=== PATIENT | female | born 1955 | race Caucasian/White ===

== ENCOUNTER 2023-08-02 16:01 | Inpatient (IN) ==
--- NOTE | 2023-08-02 16:15 | ED Triage Note ---
Date of Service August 02, 2023 History of Present Illness This patient was briefly evaluated while in triage. An abbreviated physical exam was performed. This patient is a 68-year-old Female who presents to the ED for evaluation of chest pain. She has a pacemaker and states that her bottom lead is loose. She has not felt right since getting her pacemaker placed in April 21, 2023. Has an appt on 08/20/23 to get it checked out. Has had the substernal chest pain and pressure since her pacemaker, but a lot worse today. Physical Exam GENERAL: Non-toxic and in no acute distress. HEENT: Pupils equal. No obvious scleral icterus. HEART: Regular rate and rhythm. LUNGS: Clear to auscultation. No accessory muscle use. ABDOMEN: Soft, nontender to palpation NEURO: Alert and oriented. No obvious neurological deficits on quick neuro exam. Initial orders for labs and / or imaging were placed and patient was placed in the waiting area until a bed is available. Please see further documentation for the full ED course. MDM / Impression Impression Impression: Atypical chest pain
--- NOTE | 2023-08-02 17:38 | XRay Report ---
XR chest 1V not portable HISTORY: 68 years-old Female Chest pain, nonspecific COMPARISON: None TECHNIQUE: PA view the chest FINDINGS: Cardiac silhouette is enlarged. No pneumothorax, pleural effusion or overt pulmonary edema. No lobar airspace consolidation. Mild linear subsegmental bibasilar atelectasis versus scarring. Bones appear grossly intact. IMPRESSION: Cardiomegaly without acute process. 112: Negative or not required by law. The above report was generated using voice recognition software. It may contain grammatical, syntax o r spelling errors. Electronically signed by: Freddie Moreira M.D. 08/02/2023 5:36 PM
[2023-08-02 20:27] LABS: Appearance Urine Cloudy (Clear); Bacteria Urine Automated 4+ (Negative); Bilirubin Urine Negative (Negative); Blood Urine Trace (Negative); Color Urine Yellow; Epithelial Cell Urine Auto >30 /lpf (0-5); Glucose Urine UA Negative (Negative); Ketones Urine Negative (Negative); Leukocyte Esterase Urine 3+ (Negative); Nitrite Urine Positive (Negative); Protein Urine Negative (Negative); RBC Urine Automated 0-4 /hpf (0-4); Specific Gravity Urine 1.021 (1.000-1.030); Urobilinogen Urine Negative (Negative); WBC Urine Automated >30 /hpf (0-5)
[2023-08-02 20:28] LABS: Basophils # (auto) 0.05 K/uL (0.00-0.20); Basophils % (auto) 0.7 %; Eosinophils % (auto) 2.9 %; Hematocrit (blood only) 40.7 % (37.0-47.0); Hemoglobin 13.8 g/dl (12.0-16.0); Immature Granulocytes # (auto) 0.02 K/uL (0.01-0.20); Immature Granulocytes % (auto) 0.3 %; Lymphocytes # (auto) 2.73 K/uL (1.20-3.40); Lymphocytes % (auto) 39.2 %; Mean Corpuscular Hemoglobin 31.7 pg (25.0-34.0); Mean Corpuscular Hgb Conc 33.9 g/dL (32.0-36.0); Mean Corpuscular Volume 93.3 fL (80.0-100.0); Monocytes # (auto) 0.46 K/uL (0.11-0.59); Monocytes % (auto) 6.6 %; Neutrophils % (auto) 50.3 %; Platelet Count 269 K/uL (130-400); RDW Coefficient of Variation 13.2 % (11.5-14.5); RDW Standard Deviation 45.6 fL (36.4-46.3); Red Blood Count 4.36 M/uL (4.20-5.40); White Blood Count 6.96 K/ul (4.8-10.8)
[2023-08-02 20:42] LABS: Albumin Globulin Ratio 1.3 (0.9-2); Albumin Level 4.1 gm/dl (3.4-5.0); Bilirubin,Total 0.2 mg/dl (0.2-1.0); Calcium 9.5 mg/dl (8.6-10.3); Creatinine Clr Calc Pharmacy 71.1 ml/min; Est GFR (African American) 71.4 ml/min; Est GFR (Non-African American) 61.6 ml/min; Globulin 3.1 gm/dl (2.5-4.0); Potassium 4.2 mmol/L (3.5-5.1); Total Protein 7.2 gm/dl (6.0-8.3)
[2023-08-02 20:49] LABS: Troponin I High Sensitivity 3.7 pg/ml (0-14)
[2023-08-02 21:00] LABS: Partial Thromboplastin Ratio 0.8; Partial Thromboplastin Time 23.2 Seconds (21.0-31.0); Prothrombin Time 10.7 Seconds (9.0-12.0)
--- NOTE | 2023-08-02 21:49 | Emergency Department Note ---
Impression & Plan Atypical chest pain DC ED Provider Note HPI: The patient is a 68-year-old female with history of bradycardia, status post pacemaker with original placement in March 2023, requiring revision in May 2023 through the [facility] over concern for a nonfunctioning lead, presents emergency department today with a chief complaint of chest pain. Patient states she has been having some intermittent discomfort in the left part of her chest since late May or early June. On arrival here to the ED, patient is stating that she has some pressure substernally, she states she has mild shortness of breath but she is resting comfortably in bed and saturating well on room air on my initial assessment. ROS: - Per HPI Differential Diagnosis: Acute coronary syndrome, pneumothorax, aortic dissection, pulmonary edema, pneumonia, CHF exacerbation, amongst other p otential pathologies. *Outpatient medications and allergy history reviewed. *Pertinent external medical records reviewed. PE: General: Alert HEENT: Normocephalic, trachea midline Eyes: Extraocular eye movement is intact, no scleral erythema Pulmonary: Clear to auscultation bilaterally, no wheezing Cardio: Regular rate and rhythm GI: Abdomen is soft to palpation : No suprapubic tenderness MSK: No evidence of trauma or malformation of the extremities, no edema Skin: No evidence of rash Neuro: Alert, no focal deficits Psychiatric: Cooperative playground monitor: (As interpreted by myself): - An order was placed for continuous cardiac monitoring - Patient was noted to be in paced rhythm with a rate of 60 EKG: (As interpreted by myself): Rate: 65 Rhythm: Atrial paced rhythm Intervals: ND interval 254 ms, QRS 152 ms, QTc [address] changes: No ST elevation Time: 2 0: 01 Interventions provided in ED: -Aspirin, sublingual nitroglycerin Medical Decision Making: Patient presented to the emergency department with symptoms of nonspecific chest discomfort. She states is been ongoing for several months. Patient also mention concern about pacemaker malfunctioning, states that she has an upcoming appointment with electrophysiology through [facility] cardiology for evaluation of lead revision. EKG per my interpretation shows evidence of a paced rhythm, lab work shows no leukocytosis, hemoglobin is stable, platelet count is normal, CMP does not show any critical findings, troponin is negative, delta troponin was obtained and is also negative. Chest x-ray shows cardiomegaly without any other acute process per radiology. Patient's pacemaker was interrogated, I did discuss the findings with the on-call client support representative from [email or web address], she states that the patient has not had any evidence of pacemaker malfunction or failure upon review of interrogation report. Patient's urinalysis is contaminated but possibly consistent with infection, will send for culture. Patient denies any recent urinary symptoms, denies any dysuria or fevers or flank pain. Will defer treatment. On my reassessment patient states that she has beginning of some chest discomfort again, she was given sublingual nitroglycerin with some improvement. Patient states she would prefer admission as opposed to discharge at this time as she is still having some chest discomfort. Patient is saturating well on room air, she is not tachycardic, low suspicion for PE. I did discuss the patient's presentation with the on-call hospitalist, Dr. Soto, and patient was excepted for inpatient management. Consultants: Hospitalist, Dr. Soto Disposition discussion held by myself with: Patient Diagnosis: 1. Chest pain, acute, nonspecific 2. Encounter for pacemaker interrogation Disposition: Admission Bayron Mae DO Emergency Medicine Past Med/Surg History Social History Smoking Status: Never smoker Preferred Language: Kinyarwanda Feels Safe at Home: Yes Allergies Allergies Allergy/AdvReac Type Severity Reaction Status Date / Time iv dye Allergy Uncoded 07/23/23 10:11 Home Meds Home Medications Medication Instructions Recorded Confirmed aspirin 81 mg tablet,delayed 81 mg PO DAILY 07/23/23 08/02/23 release calcium carbonate 600 mg-vitamin 1 tab PO DAILY 07/23/23 08/02/23 D3 20 mcg (800 unit) chewable tablet (Caltrate 600 plus D) conjugated estrogens 0.625 mg/gram 0.625 mg vaginal .COMPLEX 07/23/23 08/02/23 vaginal cream (Premarin) fluticasone propionate 50 1 spray intranasal DAILY 07/23/23 08/02/23 mcg/actuation nasal spray,suspension levothyroxine 100 mcg tablet 100 mcg PO .DAILY DIRECTED 07/23/23 08/02/23 losartan 100 mg tablet 100 mg PO DAILY 07/23/23 08/02/23 mecobalamin (vitamin B12) 500 mcg 500 mcg PO DAILY 07/23/23 08/02/23 chewable tablet omeprazole 20 mg capsule,delayed 20 mg PO DAILY 07/23/23 08/02/23 release simvastatin 20 mg tablet 20 mg PO DAILY 07/23/23 08/02/23 triamcinolone acetonide 0.1 % 1 applic topical .COMPLEX PRN as 07/23/23 08/02/23 topical cream directed armodafinil 250 mg tablet 250 mg PO DAILY 08/02/23 08/02/23 cholecalciferol (vitamin D3) 125 125 mcg PO DAILY 08/02/23 08/02/23 mcg (5,000 unit) tablet (Vitamin D3) solifenacin 10 mg tablet 10 mg PO DAILY 08/02/23 08/02/23 Results & Data (ED) Vital Signs Vital Signs - 24 hr 08/02/23 16:12 08/02/23 21:05 08/02/23 21:53 Temperature 37.0 C Temperature Source Temporal Artery Scan Pulse Rate 73 63 Pulse Rate [Right Finger] 61 Pulse Rate from SpO2 Sensor Pulse Rhythm Regular Pulse Rhythm [Right Finger] Regular Pulse Strength Normal Pulse Strength [Right Finger] Normal Respiratory Rate 20 18 Respiratory Effort / Characteristics Non-Labored Spontaneous Non-Labored Spontaneous Respiratory Depth Normal Normal Respiratory Pattern Regular Regular Blood Pressure 167/87 H Blood Pressure [Right Arm] 174/97 H Blood Pressure Mean 113 Blood Pressure Mean [Right Arm] 122 Blood Pressure Position Sitting Blood Pressure Position [Right Arm] Lying Pulse Oximetry 96 96 Oxygen Delivery Method Room Air Room Air Sepsis Recent Fever Within 48 Hours No Sepsis New/Unexplained Change in Mental Status No Sepsis Action Taken by Nursing No Action Required 08/02/23 22:07 08/02/23 23:44 08/02/23 23:43 Temperature Temperature Source Pulse Rate 71 60 Pulse Rate [Right Finger] 62 Pulse Rate from SpO2 Sensor 60 Pulse Rhythm Pulse Rhythm [Right Finger] Pulse Strength Pulse Strength [Right Finger] Respiratory Rate 20 16 15 Respiratory Effort / Characteristics Non-Labored Respiratory Depth Normal Respiratory Pattern Blood Pressure 150/79 H 157/89 H Blood Pressure [Right Arm] 157/89 H Blood Pressure Mean 102 111 Blood Pressure Mean [Right Arm] 111 Blood Pressure Position Blood Pressure Position [Right Arm] Pulse Oximetry 96 96 96 Oxygen Delivery Method Room Air Room Air Room Air Sepsis Recent Fever Within 48 Hours Sepsis New/Unexplained Change in Mental Status Sepsis Action Taken by Nursing 08/03/23 00:00 Temperature Temperature Source Pulse Rate 62 Pulse Rate [Right Finger] Pulse Rate from SpO2 Sensor 60 Pulse Rhythm Pulse Rhythm [Right Finger] Pulse Strength Pulse Strength [Right Finger] Respiratory Rate 12 Respiratory Effort / Characteristics Respiratory Depth Respiratory Pattern Blood Pressure 144/81 H Blood Pressure [Right Arm] Blood Pressure Mean 102 Blood Pressure Mean [Right Arm] Blood Pressure Position Blood Pressure Position [Right Arm] Pulse Oximetry 91 Oxygen Delivery Method Room Air Sepsis Recent Fever Within 48 Hours Sepsis New/Unexplained Change in Mental Status Sepsis Action Taken by Nursing Laboratory Data 08/02/23 20:00 08/02/23 20:00 Lab Results 08/02/23 08/02/23 08/02/23 Range/Units 20:00 20:00 20:00 WBC 6.96 (4.8-10.8) K/ul RBC 4.36 (4.20-5.40) M/uL Hgb 13.8 (12.0-16.0) g/dl Hct 40.7 (37.0-47.0) % MCV 93.3 (80.0-100.0) fL MCH 31.7 (25.0-34.0) pg MCHC 33.9 (32.0-36.0) g/dL RDW Std Deviation 45.6 (36.4-46.3) fL RDW Coeff of Julien 13.2 (11.5-14.5) % Plt Count 269 (130-400) K/uL MPV 9.0 L (9.4-12.4) fL Immature Gran % (Auto) 0.3 % Neut % (Auto) 50.3 % Lymph % (Auto) 39.2 % Angelina % (Auto) 6.6 % Eos % (Auto) 2.9 % Baso % (Auto) 0.7 % Neut # (Auto) 3.50 (1.40-6.50) K/uL Lymph # (Auto) 2.73 (1.20-3.40) K/uL Angelina # (Auto) 0.46 (0.11-0.59) K/uL Eos # (Auto) 0.20 (0.00-0.50) K/uL Baso # (Auto) 0.05 (0.00-0.20) K/uL Immature Gran # (Auto) 0.02 (0.01-0.20) K/uL PT 10.7 (9.0-12.0) Seconds INR 1.0 (0.9-1.1) APTT 23.2 (21.0-31.0) Seconds PTT Ratio 0.8 Sodium 139 (136-145) mmol/L Potassium 4.2 (3.5-5.1) mmol/L Chloride 108 H (98-107) mmol/L Carbon Dioxide 25 (21-32) mmol/L Anion Gap 6 (3-11) BUN 23 (6-23) mg/dl Creatinine 0.96 (0.6-1.2) mg/dl Est Cr Clr Drug Dosing 71.1 ml/min Est GFR ( Amer) 71.4 ml/min Est GFR (Non-Af Amer) 61.6 ml/min BUN/Creatinine Ratio 24.0 H (10-20) Glucose 88 (70-99(Fasting)) mg/dl Calcium 9.5 (8.6-10.3) mg/dl Total Bilirubin 0.2 (0.2-1.0) mg/dl AST 16 (13-39) U/L ALT 21 (7-52) U/L Alkaline Phosphatase 94 (34-104) U/L Troponin I High Sens 3.7 (0-14) pg/ml Total Protein 7.2 (6.0-8.3) gm/dl Albumin 4.1 (3.4-5.0) gm/dl Globulin 3.1 (2.5-4.0) gm/dl Albumin/Globulin Ratio 1.3 (0.9-2) Lipase 15 (11-82) U/L Urine Color Urine Appearance (Clear) Urine pH (4.5-7.5) Ur Specific [place] (1.000-1.030) Urine Protein (Negative) Urine Glucose (UA) (Negative) Urine Ketones (Negative) Urine Blood (Negative) Urine Nitrite (Negative) Urine Bilirubin (Negative) Urine Urobilinogen (Negative) Ur Leukocyte Esterase (Negative) Urine WBC (Auto) (0-5) /hpf Urine RBC (Auto) (0-4) /hpf U Hyaline Cast (Auto) (0-5) /lpf U Epithel Cells (Auto) (0-5) /lpf Urine Bacteria (Auto) (Negative) SARS-CoV-2, RNA, NAAT (NEGATIVE) 08/02/23 08/02/23 08/02/23 Range/Units 20:00 20:10 21:53 WBC (4.8-10.8) K/ul RBC (4.20-5.40) M/uL Hgb (12.0-16.0) g/dl Hct (37.0-47.0) % MCV (80.0-100.0) fL MCH (25.0-34.0) pg MCHC (32.0-36.0) g/dL RDW Std Deviation (36.4-46.3) fL RDW Coeff of Julien (11.5-14.5) % Plt Count (130-400) K/uL MPV (9.4-12.4) fL Immature Gran % (Auto) % Neut % (Auto) % Lymph % (Auto) % Angelina % (Auto) % Eos % (Auto) % Baso % (Auto) % Neut # (Auto) (1.40-6.50) K/uL Lymph # (Auto) (1.20-3.40) K/uL Angelina # (Auto) (0.11-0.59) K/uL Eos # (Auto) (0.00-0.50) K/uL Baso # (Auto) (0.00-0.20) K/uL Immature Gran # (Auto) (0.01-0.20) K/uL PT (9.0-12.0) Seconds INR (0.9-1.1) APTT (21.0-31.0) Seconds PTT Ratio Sodium (136-145) mmol/L Potassium (3.5-5.1) mmol/L Chloride (98-107) mmol/L Carbon Dioxide (21-32) mmol/L Anion Gap (3-11) BUN (6-23) mg/dl Creatinine (0.6-1.2) mg/dl Est Cr Clr Drug Dosing ml/min Est GFR ( Amer) ml/min Est GFR (Non-Af Amer) ml/min BUN/Creatinine Ratio (10-20) Glucose (70-99(Fasting)) mg/dl Calcium (8.6-10.3) mg/dl Total Bilirubin (0.2-1.0) mg/dl AST (13-39) U/L ALT (7-52) U/L Alkaline Phosphatase (34-104) U/L Troponin I High Sens 3.9 (0-14) pg/ml Total Protein (6.0-8.3) gm/dl Albumin (3.4-5.0) gm/dl Globulin (2.5-4.0) gm/dl Albumin/Globulin Ratio (0.9-2) Lipase (11-82) U/L Urine Color Yellow Urine Appearance Cloudy A (Clear) Urine pH 7.0 (4.5-7.5) Ur Specific [place] 1.021 (1.000-1.030) Urine Protein Negative (Negative) Urine Glucose (UA) Negative (Negative) Urine Ketones Negative (Negative) Urine Blood Trace H (Negative) Urine Nitrite Positive A (Negative) Urine Bilirubin Negative (Negative) Urine Urobilinogen Negative (Negative) Ur Leukocyte Esterase 3+ H (Negative) Urine WBC (Auto) >30 H (0-5) /hpf Urine RBC (Auto) 0-4 (0-4) /hpf U Hyaline Cast (Auto) 1-5 (0-5) /lpf U Epithel Cells (Auto) >30 H (0-5) /lpf Urine Bacteria (Auto) 4+ H (Negative) SARS-CoV-2, RNA, NAAT NEGATIVE (NEGATIVE) Administered Medications Discontinued Medications Aspirin (Aspirin Chew 324 Mg) 324 mg PO NOW STA Stop: 08/02/23 23:13 Last Admin: 08/02/23 23:43 Dose: 324 mg Documented By: CHARMAINE Nitroglycerin (Nitroglycerin Sl 0.4 Mg/Tab Tab) 0.4 mg SL NOW STA Stop: 08/02/23 23:23 Last Admin: 08/02/23 23:43 Dose: 0.4 mg Documented By: Admin: 08/02/23 23:43 Dose: 0.4 mg Documented By: CHARMAINE Imaging Data Radiologist's Impression: Chest X-Ray 08/02/23 16:15 XR chest 1V not portable HISTORY: 68 years-old Female Chest pain, nonspecific COMPARISON: None TECHNIQUE: PA view the chest FINDINGS: Cardiac silhouette is enlarged. No pneumothorax, pleural effusion or overt pulm onary edema. No lobar airspace consolidation. Mild linear subsegmental bibasilar atelectasis versus scarring. Bones appear grossly intact. IMPRESSION: Cardiomegaly without acute process. 112: Negative or not required by law. The above report was generated using voice recognition software. It may contain grammatical, syntax or spelling errors. Electronically signed by: Freddie Moreira M.D. 08/02/2023 5:36 PM Discharge Plan Visit Data Chief Complaint: Chest Pain Stated Complaint: CHEST DISCOMFORT,PACEMAKER ISSUES ED Provider: Bayron Mae Discharge Problem: Atypical chest pain Patient Disposition: Home - Self-Care Condition: Good Discharge Instructions Krames/Other Patient Handouts: ED [facility] Chest Pain Activity Restrictions/Additional Instructions: Please follow-up with your primary care doctor in 2 to 3 days for reevaluation. Please return the emergency room if you have any new or acutely worsening symptoms. Please follow-up with electrophysiology, as scheduled. Forms Stand Alone Forms: My [facility], Virtual Emergency Department, Important Visit Information Prescriptions Prescriptions: No Action Caltrate 600 plus D 600 mg-20 mcg (800 unit) tablet,chewable 1 tab PO DAILY fluticasone propionate 50 mcg/actuation spray,suspension 1 spray intranasal DAILY Rx Instructions: administer into each nostril levothyroxine 100 mcg tablet 100 mcg PO .DAILY DIRECTED Rx Instructions: take 1 tablet 6 days a week and take 1/2 tablet 1 day per week Premarin 0.625 mg/gram cream 0.625 mg vaginal .COMPLEX Rx Instructions: 0.625 mg vaginally twice a week omeprazole 20 mg capsule,delayed release(DR/EC) 20 mg PO DAILY simvastatin 20 mg tablet 20 mg PO DAILY mecobalamin (vitamin B12) 500 mcg tablet,chewable 500 mcg PO DAILY triamcinolone acetonide 0.1 % cream 1 applic topical .COMPLEX PRN (Reason: as directed) Rx Instructions: 1 applic topically twice a week; aspirin 81 mg tablet,delayed release (DR/EC) 81 mg PO DAILY losartan 100 mg tablet 100 mg PO DAILY solifenacin 10 mg tablet 10 mg PO DAILY armodafinil 250 mg tablet 250 mg PO DAILY cholecalciferol (vitamin D3) [Vitamin D3] 125 mcg (5,000 unit) Tablet 125 mcg PO DAILY Referrals Referrals: Sergey Ryan MD [Physician] - Dora Parrish M.D. [Primary Care Provider] -
[2023-08-02] MEDS ORDERED: ASPIRIN CHEW 324 MG PO STA (23:12)
[2023-08-02] MEDS: NITROGLYCERIN SL 0.4 MG/TAB TAB SL STA (23:43)
--- NOTE | 2023-08-03 00:41 | History & Physical Report ---
Date of Service August 02, 2023 Assessment & Plan (1) Atypical chest pain: Plan: -Pt presents with progressive chest pressure with few months' duration -Hemodynamically stable at present -EKG w/o acute ST changes, negative troponin x2, pt denies explicit pain -Suspect symptoms may be secondary to evolving coronary disease vs pacemaker complication -TTE ordered -Telemetry monitoring -Cardiology consult placed for AM (2) Pacemaker: Plan: -As above -Currently in paced rhythm (3) Hypertension: Plan: -BP stable -Continue losartan (4) Hyperlipidemia: Plan: -Continue simvastatin (5) GERD (gastroesophageal reflux disease): Plan: -Continue omeprazole (6) Hypothyroidism: Plan: -Continue levothyroxine (7) Sleep-wake disorder: Plan: -Continue armodafinil (8) Overactive bladder: Plan: -Continue solinefacin (9) Obstructive sleep apnea: Plan: -Continue BIPAP Hs (10) Abnormal urinalysis: Plan: -Infected urinalysis on admission though likely contaminant given pt has no urinary symptoms -UCx pending -Deferring antibiotics for now Plan FENGI: NPO in case of procedure in AM Code status: Conditional, DNI DVT prophylaxis: SCDs Isolation: None Disposition: Medical/surgical with telemetry History of Present Illness Chief Complaint: Chest pressure Primary Care Provider: Dora Parrish Pt is 68 yo F with PMH BONNY on BIPAP, hypothyroidism, overactive bladder, sleep- cycle disorder, HTN, GERD, HLD, bradycardia w/ syncope s/p pacemaker insertion 03/2023 presenting with chest pressure. Pt states she had pacemaker insertion on 04/20/23 due to history of persistent bradycardia. She felt well afterward until 6 weeks post-procedure when she began to have intermittent and self-limiting midsternal 5/10 chest pressure (denies pain) without radiation or associated symptoms. She did have pacemaker revision in 05/2023 due do dislodged lead. She notes since 2-3 weeks prior, the chest pressure has evolved to be mostly constant and higher in severity to 7/10. She does note over the past year some increased chest pressure and dyspnea on exertion of which her current symptoms are reminiscent. Denies any FMH of ACS but does report "heart disease" in several family members. She last had stress testing 4 years prior but cannot recall results and has never had catheterization. Pt arrived to ER hemodynamically stable, BP 150s-170s/80s-90s, received aspirin 324 mg and nitroglycerin SL x2. Initial evaluation significant for EKG w/ atrial paced rhythm and prolonged AV conduction, RBBB, no overt ST segment elevations/depressions. CBC, CMP, CXR, troponin x2 negative. UA suggesting infection though epithelial cells noted. At present, pt reports no change in chest pressure. No new symptoms. Allergies Allergy/AdvReac Type Severity Reaction Status Date / Time Iodinated Contrast Media Allergy Unknown Verified 08/03/23 03:17 Home Medications Medication Instructions Recorded Confirmed Type aspirin 81 mg tablet,delayed 81 mg PO DAILY 07/23/23 08/02/23 History release calcium carbonate 600 mg-vitamin 1 tab PO DAILY 07/23/23 08/02/23 History D3 20 mcg (800 unit) chewable tablet (Caltrate 600 plus D) conjugated estrogens 0.625 mg/gram 0.625 mg vaginal .COMPLEX 07/23/23 08/02/23 History vaginal cream (Premarin) fluticasone propionate 50 1 spray intranasal DAILY 07/23/23 08/02/23 History mcg/actuation nasal spray,suspension levothyroxine 100 mcg tablet 100 mcg PO .DAILY DIRECTED 07/23/23 08/02/23 History losartan 100 mg tablet 100 mg PO DAILY 07/23/23 08/02/23 History mecobalamin (vitamin B12) 500 mcg 500 mcg PO DAILY 07/23/23 08/02/23 History chewable tablet omeprazole 20 mg capsule,delayed 20 mg PO DAILY 07/23/23 08/02/23 History release simvastatin 20 mg tablet 20 mg PO DAILY 07/23/23 08/02/23 History triamcinolone acetonide 0.1 % 1 applic topical .COMPLEX PRN as 07/23/23 08/02/23 History topical cream directed armodafinil 250 mg tablet 250 mg PO DAILY 08/02/23 08/02/23 History cholecalciferol (vitamin D3) 125 125 mcg PO DAILY 08/02/23 08/02/23 History mcg (5,000 unit) tablet (Vitamin D3) solifenacin 10 mg tablet 10 mg PO DAILY 08/02/23 08/02/23 History Past Med/Surg History Social History Smoking Status: Never smoker Second Hand Exposure: No; Do You Dip or Chew Tobacco: No; Tobacco Cessation Education Requested by Patient: No Hx Alcohol Use: No Hx Substance Use: No Preferred Language: Cambodian Communication Ability: Effective Returned Item Clerk Required: No Beliefs That Will Affect Care: None Current Living Situation: Spouse Feels Safe at Home: Yes Safety Concerns: Feels Safe At This Time Assistive Devices: BiPap Review of Systems Review of Systems: Per HPI Physical Exam Physical Exam: General: well-appearing, no acute distress HEENT: PERRL, EOMI, conjunctivae clear without injection, anicteric sclerae, moist mucous membranes, clear oropharynx without exudate or erythema Neck: supple, trachea midline, no thyromegaly, no JVD, no cervical lymphadenopathy CV: RRR, normal S1 and S2, no murmurs Resp: CTAB, no increased work of breathing, no crackles or wheezes Abd: Soft, nontender, nondistended, no guarding or rebound, no hepatosplenomegaly MSK: Normal bulk of all four extremities Neuro: AOx3, no focal motor or sensory deficits Skin: no rashes or lesions, warm and dry Ext: no LE peripheral edema or erythema, capillary refill <2s in all four extremities, 2+ LE peripheral pulses b/l Results & Data Results & Data Vital Signs (Past 12 Hours) Vital Signs Temp Pulse Pulse Resp BP BP Pulse Ox 08/02/23 23:44 62 16 157/89 H 96 08/02/23 22:07 71 20 150/79 H 96 08/02/23 21:53 63 08/02/23 21:05 61 18 174/97 H 96 08/02/23 16:12 37.0 C 73 20 167/87 H 96 O2 Del Method 08/02/23 23:44 Room Air 08/02/23 22:07 Room Air 08/02/23 21:53 08/02/23 21:05 Room Air 08/02/23 16:12 Room Air Supervising Physician Co-Signing Physician Notes Attending addendum: I have physically seen this patient, have supervised the medical residents activities, and agree with the H&P unless as otherwise noted. Assessment and Plan: Chest pain/hypertension/pacemaker presents- The patient will be admitted to telemetry for serial cardiac enzymes, serial EKG's, cardiac rhythm monitoring and a 2-D echocardiogram with Dopplers. Initial EKG and troponins negative Continue losartan Aspirin 81 mg daily. Full loading dose in ED Consult to cardiology Hyperlipidemia- Continue simvastatin Check a fasting lipid panel Sleep-wake disorder- On armodafinil We will need to reassess in the presence of chest pain BONNY- Continue his home BiPAP at at bedtime Remaining orders and notations as noted Resident Activity Tracking Resident Involvement: Resident Care Provided Care Provided: Adult Hospital Medicine
[2023-08-03] MEDS ORDERED: ONDANSETRON INJ 2 MG/ML 2 ML VIAL IV PRN (03:00)
[2023-08-03] MEDS ORDERED: MoRPHine SULFATE 2 MG/ML CARP IV PRN (03:00)
[2023-08-03 04:26] LABS: BUN Creatinine Ratio 25.6 (10-20); Calcium 8.6 mg/dl (8.6-10.3); Creatinine Clr Calc Pharmacy 87.5 ml/min; Est GFR (African American) 91.8 ml/min; Est GFR (Non-African American) 79.2 ml/min
[2023-08-03 04:27] LABS: Hematocrit (blood only) 37.3 % (37.0-47.0); Hemoglobin 12.9 g/dl (12.0-16.0); Mean Corpuscular Hemoglobin 31.7 pg (25.0-34.0); Mean Corpuscular Hgb Conc 34.6 g/dL (32.0-36.0); Mean Corpuscular Volume 91.6 fL (80.0-100.0); Mean Platelet Volume 8.8 fL (9.4-12.4); Platelet Count 256 K/uL (130-400); RDW Coefficient of Variation 13.1 % (11.5-14.5); RDW Standard Deviation 43.9 fL (36.4-46.3); Red Blood Count 4.07 M/uL (4.20-5.40); White Blood Count 5.43 K/ul (4.8-10.8)
[2023-08-03] MEDS: NITROGLYCERIN 2% OINTMENT 30GM TUBE EXT SCH ×2 (06:25→14:40)
[2023-08-03] MEDS ORDERED: LEVOTHYROXINE SODIUM 100 MCG TABLET PO SCH (06:30)
[2023-08-03] MEDS: PANTOprazole 40 MG TAB PO SCH (09:27)
[2023-08-03] MEDS: ASPIRIN 81 MG ECTAB PO SCH (09:27)
[2023-08-03] MEDS: SIMVASTATIN 20 MG TAB PO SCH (09:27)
[2023-08-03] MEDS: OXYBUTYNIN CHLORIDE XL 5 MG TABCR PO SCH (09:27)
[2023-08-03] MEDS: LOSARTAN POTASSIUM 50 MG TAB PO SCH (09:27)
[2023-08-03 10:52] LABS: C Reactive Protein 0.55 mg/dl (0-0.5)
--- NOTE | 2023-08-03 12:21 | XCELERA ---
[id number] \\[id number]
--- NOTE | 2023-08-03 12:22 | Cardiology Consultation ---
Date of Consultation August 03, 2023 Assessment & Plan (1) Chest pain syndrome: -will perform a stress echocardiogram to rule out myocardial ischemia as an etiology. -symptoms are not classic, however, she has numerous risk factors. (2) Hypertension: -adequate control on current regimen. (3) Hyperlipidemia: -continue simvastatin. (4) Pacemaker: -implanted in March for symptomatic bradycardia. -RV lead revised in May. -RV lead appears to be nonfunctional. -Dr. Ryan will meet with the patient later today. History of Present Illness Attending Physician: Eugenio Espinal MD History of Present Illness Mrs. Parker is a 68-year-old female admitted yesterday with a chest pain syndrome. This consultation was ordered to assist in her cardiac management. Of note, patient typically follows with Dr. Bean in [place]. She is scheduled to meet with Dr. Ryan later this month. The patient's recent history began back on April 21 she had a dual-chamber pacemaker placed for symptomatic bradycardia. Unfortunately, her right ventricular lead dislodged and she required a revision on June 09. Unfortunately, a pacemaker interrogation performed on July 09 again noted a RV lead dislodgement. Fortunately, her atrial lead is functioning properly. Since the original pacer interrogation, the patient has noticed a chest pain syndrome. She describes a fullness in the substernal region which is present almost constantly. Lately, she has noted an increase in her discomfort with physical activity. There are no other associated symptoms such as shortness of breath, nausea, vomiting, or diaphoresis. We have discussed need for a stress test. Currently, patient is resting comfortably in bed without complaints. Past medical and surgical history 1. Hypertension 2. Hypercholesterolemia 3. Symptomatic bradycardia 4. DDD pacemaker-04/21/2023 5. RV lead revision-06/09/2023 6. Hypothyroidism 7. GERD 8. Obesity 9. Obstructive sleep apnea 10. Venous insufficiency 11. Bilateral carpal tunnel release 12. Vertebral fracture repair 13. 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 Allergies Allergy/AdvReac Type Severity Reaction Status Date / Time Iodinated Contrast Media Allergy Unknown Verified 08/03/23 03:17 Home Medications Medication Instructions Recorded Confirmed Type aspirin 81 mg tablet,delayed 81 mg PO DAILY 07/23/23 08/02/23 History release calcium carbonate 600 mg-vitamin 1 tab PO DAILY 07/23/23 08/02/23 History D3 20 mcg (800 unit) chewable tablet (Caltrate 600 plus D) conjugated estrogens 0.625 mg/gram 0.625 mg vaginal .COMPLEX 07/23/23 08/02/23 History vaginal cream (Premarin) fluticasone propionate 50 1 spray intranasal DAILY 07/23/23 08/02/23 History mcg/actuation nasal spray,suspension levothyroxine 100 mcg tablet 100 mcg PO .DAILY DIRECTED 07/23/23 08/02/23 History losartan 100 mg tablet 100 mg PO DAILY 07/23/23 08/02/23 History mecobalamin (vitamin B12) 500 mcg 500 mcg PO DAILY 07/23/23 08/02/23 History chewable tablet omeprazole 20 mg capsule,delayed 20 mg PO DAILY 07/23/23 08/02/23 History release simvastatin 20 mg tablet 20 mg PO DAILY 07/23/23 08/02/23 History triamcinolone acetonide 0.1 % 1 applic topical .COMPLEX PRN as 07/23/23 08/02/23 History topical cream directed armodafinil 250 mg tablet 250 mg PO DAILY 08/02/23 08/02/23 History cholecalciferol (vitamin D3) 125 125 mcg PO DAILY 08/02/23 08/02/23 History mcg (5,000 unit) tablet (Vitamin D3) solifenacin 10 mg tablet 10 mg PO DAILY 08/02/23 08/02/23 History Patient History Social History Smoking Status: Never smoker Second Hand Exposure: No; Do You Dip or Chew Tobacco: No; Tobacco Cessation Education Requested by Patient: No Hx Alcohol Use: No Hx Substance Use: No Preferred Language: Ethiopian Communication Ability: Effective 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 HEENT exam is negative. Neck is supple with full carotid upstrokes. No carotid bruits. Jugular is pressure is flat 90. There is no thyromegaly. Cardiovascular exam reveals a regular rhythm normal S1 and S2. No S3, S4, or murmurs are noted. Lungs are clear without rales, rhonchi, or wheezes. Abdomen is obese without bruits. Extremities reveal intact radial artery pulses bilaterally. There is no peripheral edema. Results & Data Vital Signs (Past 12 Hours) Vital Signs Temp Pulse Pulse Resp BP BP Pulse Ox 08/03/23 08:00 66 18 140/80 98 08/03/23 04:51 36.7 C 60 16 169/78 H 94 08/03/23 04:06 60 08/03/23 02:00 67 13 156/83 H 96 08/03/23 01:58 115 H 17 133/85 96 08/03/23 00:30 69 18 166/88 H 97 O2 Del Method 08/03/23 08:00 Room Air 08/03/23 04:51 Room Air 08/03/23 04:06 08/03/23 02:00 Room Air 08/03/23 01:58 Room Air 08/03/23 00:30 Room Air Laboratory Results CBC notes hemoglobin 12.9, crit 37.3, white count 5.4, and platelet count of 130836. Electrolytes note a sodium of 139, potassium 4.0, chloride 108, bicarb 26, BUN 20, creatinine 0.78, glucose of 90. Initial high sensitivity troponin was 3.7 with a follow-up value of 3.9. Diagnostic Findings EKG notes atrial pacing with prolonged intrinsic conduction. Ventricular pacer spike divides the QRS complex and is not likely conducted. There is left axis deviation and a complete right bundle branch block. Chest x-ray notes cardiomegaly and a pacemaker in left subclavicular region. RV lead does not appear to be in the apex. PG Care Time/CCT Total # of Minutes Spent Total Time Spent with Patient: Total time spent is greater than 50% in coordination of care (as documented) at patient's floor/unit and/or counseling patient: Coding Level of Care Code 65175 IN/OBS CONSULT LVL 4,60M Diagnoses Chest pain syndrome R07.9 Hypertension I10 Hyperlipidemia E78.5 Pacemaker Z95.0
--- NOTE | 2023-08-03 15:42 | Electrocardiogram Report ---
Test Reason : Blood Pressure : / mmHG Vent. Rate : 065 BPM Atrial Rate : 065 BPM P-R Int : 254 ms QRS Dur : 152 ms QT Int : 432 ms P-R-T Axes : 007 -73 018 degrees QTc Int : 449 ms Suspect unspecified pacemaker failure Atrial-paced rhythm with prolonged AV conduction Left axis deviation Right bundle branch block Cannot rule out Inferior infarct , age undetermined Abnormal ECG No previous ECGs available Confirmed by Jaya Chester ([id number]) on 08/03/2023 3:42:35 PM Referred By: REFERRED SELF Confirmed By:Jaya Chester
--- NOTE | 2023-08-03 16:05 | XCELERA ---
[id number]
--- NOTE | 2023-08-03 16:20 | Billing Data ---
Date of Service August 03, 2023 Coding Level of Care Code 30644 INT INP/OBS CARE
[2023-08-03] MEDS ORDERED: cephALEXin 500 MG CAP PO STA (17:12)
--- NOTE | 2023-08-03 18:48 | Ultrasound Report ---
BILATERAL LOWER EXTREMITY VENOUS DOPPLER HISTORY: chest pressure, immobility; eval DVT COMPARISON STUDY: None. FINDINGS: There is normal compressibility and augmentation within the right lower extremity deep veno us system. A small amount of nonocclusive thrombus seen within the left popliteal vein. Otherwise, no additional sites of deep vein thrombosis within the left lower extremity. There is slow flow identif ied within the left popliteal vein and superficial vessels within the right popliteal fossa. IMPRESSION: 1. No DVT within the right lower extremity. 2. A small amount of nonocclusive thrombus within the left popliteal vein. This is age indeterminate but could be chronic. ACT 112: Negative or not required by law. Electronically signed by: Raffaele Crowe M.D. 08/03/2023 6:46 PM
--- NOTE | 2023-08-03 19:15 | Hospitalist Progress Note ---
Date of Service August 03, 2023 Assessment & Plan (1) Atypical chest pain: Plan: Chest "pressure" for 2 months. Symptoms are often at rest. Not worsened by supine positioning; sed rate/crp wnl; thus pericarditis unlikely. Troponins negative. Echo wnl. Stress echo was negative for WMAs but she did not reach target heart rate (only got to MPHR of 82%). Kgfr-[id number] ischemia felt unlikely. No symptoms of GERD. She does report mild NIEVES and recent sedentary lifestyle due to restrictions from her pacemaker procedures; thus, PE possible. After my visit today I obtained dopplers of b/l LEs - there is a popliteal vein DVT - ?chronic. Unfortunately she has an IV contrast allergy. To definitively rule out PE will perform pre-CT contrast protocol with prednisone 50mg x 3 doses followed by CTA chest tomorrow 1 hour after final prednisone dose. In meantime place on heparin infusion, standard dosing. Spoke with cardiology - pressure felt NOT due to the lead displacement. (2) Displacement of electrode lead of cardiac pacemaker: Plan: Original pacemaker placement 03/2023 [facility]. Lead revision 05/2023. Lead again displaced. Dr Chester/Connor have seen -- plan is lead revision in near-future as outpatient. (3) Pacemaker: Plan: see above (4) Hypertension: Plan: Controlled Continue losartan (5) Hyperlipidemia: Plan: Continue simvastatin (6) GERD (gastroesophageal reflux disease): Plan: Cont PPI (7) Hypothyroidism: Plan: TSH is 15 She reports compliance with her levothyroxine She takes 1/2 her usual daily dose on Sundays Recommend all days of the week 100mcg Repeat TSH 6 weeks Suspect she may need even more dose adjustment (8) Sleep-wake disorder: Plan: Continue armodafinil (9) Overactive bladder: Plan: Continue solinefacin (10) Obstructive sleep apnea: Plan: BIPAP HS (11) Left leg DVT: Plan: popliteal vein possibly chronic [id number] this deserves Rx start heparin drip per protocol - standard dosing obtain CTA chest - r/o PE definitively will need prednisone protocol due to contrast allergy made patient aware of the doppler findings and plan for CTA chest tomorrow (12) UTI (urinary tract infection): Plan: has had increasing urgency in the last week growing e.coli on urine cx start keflex 500mg BID follow culture Plan hopefully home tomorrow even if CTA chest is + for PE Admission and Anticipated Discharge Date Admission Date: August 03, 2023 Subjective patient reports ongoing "chest pressure" minimally pleuritic central in location did radiate to her back over the last day or two mild dyspnea on exertion; none at rest no cough pressure sensation started after her lead revision in May denies any recent travel she does admit to being more sedentary over the last couple of months due to restrictions from pacemaker placement and lead revision denies personal h/o DVT denies personal h/o PE mother had DVT/PEs when she had ovarian cancer (about age 70) Review of Systems Review of Systems: gen - no fevers or chills cv - no orthopnea or PND; no edema pulm - no cough or congestion GI - no abd pain Physical Exam Physical Exam: gen - NAD, pleasant mouth - MMM neck - no JVD heart - RRR, s1 s2, no murmur; no rub chest - no reproducible chest wall pain to palpation; scar over pacer site left upper chest well-healed lungs - CTA b/l abd - soft NT ND BS+ ext - no edema, pulses 2+ b/l Results & Data Results & Data Vital Signs (Past 12 Hours) Vital Signs Pulse Resp BP Pulse Ox O2 Del Method 08/03/23 17:19 60 17 145/81 H 94 Room Air 08/03/23 08:00 66 18 140/80 98 Room Air Laboratory Results Laboratory Results - last 24 hr 08/02/23 08/02/23 08/02/23 20:00 20:00 20:00 WBC 6.96 RBC 4.36 Hgb 13.8 Hct 40.7 MCV 93.3 MCH 31.7 MCHC 33.9 RDW Std Deviation 45.6 RDW Coeff of Julien 13.2 Plt Count 269 MPV 9.0 L Immature Gran % (Auto) 0.3 Neut % (Auto) 50.3 Lymph % (Auto) 39.2 Chilton % (Auto) 6.6 Eos % (Auto) 2.9 Baso % (Auto) 0.7 Neut # (Auto) 3.50 Lymph # (Auto) 2.73 [place] # (Auto) 0.46 Eos # (Auto) 0.20 Baso # (Auto) 0.05 Immature Gran # (Auto) 0.02 ESR PT 10.7 INR 1.0 APTT 23.2 PTT Ratio 0.8 Sodium 139 Potassium 4.2 Chloride 108 H Carbon Dioxide 25 Anion Gap 6 BUN 23 Creatinine 0.96 Est Cr Clr Drug Dosing 71.1 Est GFR ( Amer) 71.4 Est GFR (Non-Af Amer) 61.6 BUN/Creatinine Ratio 24.0 H Glucose 88 Calcium 9.5 Total Bilirubin 0.2 AST 16 ALT 21 Alkaline Phosphatase 94 Troponin I High Sens 3.7 C-Reactive Protein Total Protein 7.2 Albumin 4.1 Globulin 3.1 Albumin/Globulin Ratio 1.3 Lipase 15 TSH Urine Color Urine Appearance Urine pH Ur Specific Zapata Urine Protein Urine Glucose (UA) Urine Ketones Urine Blood Urine Nitrite Urine Bilirubin Urine Urobilinogen Ur Leukocyte Esterase Urine WBC (Auto) Urine RBC (Auto) U Hyaline Cast (Auto) U Epithel Cells (Auto) Urine Bacteria (Auto) SARS-CoV-2, RNA, NAAT 08/02/23 08/02/23 08/02/23 20:00 20:10 21:53 WBC RBC Hgb Hct MCV MCH MCHC RDW Std Deviation RDW Coeff of Julien Plt Count MPV Immature Gran % (Auto) Neut % (Auto) Lymph % (Auto) Chilton % (Auto) Eos % (Auto) Baso % (Auto) Neut # (Auto) Lymph # (Auto) Chilton # (Auto) Eos # (Auto) Baso # (Auto) Immature Gran # (Auto) ESR PT INR APTT PTT Ratio Sodium Potassium Chloride Carbon Dioxide Anion Gap BUN Creatinine Est Cr Clr Drug Dosing Est GFR ( Amer) Est GFR (Non-Af Amer) BUN/Creatinine Ratio Glucose Calcium Total Bilirubin AST ALT Alkaline Phosphatase Troponin I High Sens 3.9 C-Reactive Protein Total Protein Albumin Globulin Albumin/Globulin Ratio Lipase TSH Urine Color Yellow Urine Appearance Cloudy A Urine pH 7.0 Ur Specific Z[place]ata 1.021 Urine Protein Negative Urine Glucose (UA) Negative Urine Ketones Negative Urine Blood Trace H Urine Nitrite Positive A Urine Bilirubin Negative Urine Urobilinogen Negative Ur Leukocyte Esterase 3+ H Urine WBC (Auto) >30 H Urine RBC (Auto) 0-4 U Hyaline Cast (Auto) 1-5 U Epithel Cells (Auto) >30 H Urine Bacteria (Auto) 4+ H SARS-CoV-2, RNA, NAAT NEGATIVE 08/03/23 08/03/23 08/03/23 03:50 03:50 03:50 WBC 5.43 RBC 4.07 L Hgb 12.9 Hct 37.3 MCV 91.6 MCH 31.7 MCHC 34.6 RDW Std Deviation 43.9 RDW Coeff of Juilen 13.1 Plt Count 256 MPV 8.8 L Immature Gran % (Auto) Neut % (Auto) Lymph % (Auto) [place] % (Auto) Eos % (Auto) Baso % (Auto) Neut # (Auto) Lymph # (Auto) [place] # (Auto) Eos # (Auto) Baso # (Auto) Immature Gran # (Auto) ESR PT INR APTT PTT Ratio Sodium 139 Potassium 4.0 Chloride 108 H Carbon Dioxide 26 Anion Gap 5 BUN 20 Creatinine 0.78 Est Cr Clr Drug Dosing 87.5 Est GFR ( Amer) 91.8 Est GFR (Non-Af Amer) 79.2 BUN/Creatinine Ratio 25.6 H Glucose 90 Calcium 8.6 Total Bilirubin AST ALT Alkaline Phosphatase Troponin I High Sens C-Reactive Protein 0.55 H Total Protein Albumin Globulin Albumin/Globulin Ratio Lipase TSH 15.415 H Urine Color Urine Appearance Urine pH Ur Specific [place] Urine Protein Urine Glucose (UA) Urine Ketones Urine Blood Urine Nitrite Urine Bilirubin Urine Urobilinogen Ur Leukocyte Esterase Urine WBC (Auto) Urine RBC (Auto) U Hyaline Cast (Auto) U Epithel Cells (Auto) Urine Bacteria (Auto) SARS-CoV-2, RNA, NAAT 08/03/23 03:50 WBC RBC Hgb Hct MCV MCH MCHC RDW Std Deviation RDW Coeff of Julien Plt Count MPV Immature Gran % (Auto) Neut % (Auto) Lymph % (Auto) [place] % (Auto) Eos % (Auto) Baso % (Auto) Neut # (Auto) Lymph # (Auto) [place] # (Auto) Eos # (Auto) Baso # (Auto) Immature Gran # (Auto) ESR 9 PT INR APTT PTT Ratio Sodium Potassium Chloride Carbon Dioxide Anion Gap BUN Creatinine Est Cr Clr Drug Dosing Est GFR ( Amer) Est GFR (Non-Af Amer) BUN/Creatinine Ratio Glucose Calcium Total Bilirubin AST ALT Alkaline Phosphatase Troponin I High Sens C-Reactive Protein Total Protein Albumin Globulin Albumin/Globulin Ratio Lipase TSH Urine Color Urine Appearance Urine pH Ur Specific [place] Urine Protein Urine Glucose (UA) Urine Ketones Urine Blood Urine Nitrite Urine Bilirubin Urine Urobilinogen Ur Leukocyte Esterase Urine WBC (Auto) Urine RBC (Auto) U Hyaline Cast (Auto) U Epithel Cells (Auto) Urine Bacteria (Auto) SARS-CoV-2, RNA, NAAT PG Care Time/CCT Total # of Minutes Spent Total Time Spent with Patient: Total time spent is greater than 50% in coordination of care (as documented) at patient's floor/unit and/or counseling patient: Coding Level of Care Code 84841 SUB INP/OBS CARE 3/50MIN Diagnoses Atypical chest pain R07.89 Displacement of electrode lead of cardiac pacemaker T82.120A Pacemaker Z95.0 Hypertension I10 Hyperlipidemia E78.5 GERD (gastroesophageal reflux disease) K21.9 Hypothyroidism E03.9 Sleep-wake disorder G47.20 Overactive bladder N32.81 Obstructive sleep apnea G47.33 Left leg DVT I82.402 UTI (urinary tract infection) N39.0
[2023-08-03] MEDS ORDERED: predniSONE 50 MG TAB PO STA (19:23)
[2023-08-03] MEDS ORDERED: Heparin IV Adult Wt-Based Standard *NO* Bolus Protocol IV ONE (19:43)
[2023-08-03] MEDS: HEPARIN SODIUM/DEXTROSE 25,000 UNITS/500 ML BAG IV SCH (21:25)
[2023-08-04 04:48] LABS: Partial Thromboplastin Ratio 1.9
[2023-08-04 05:07] LABS: Partial Thromboplastin Time 53.3 Seconds (21.0-31.0)
[2023-08-04] MEDS: predniSONE 50 MG TAB PO SCH ×2 (05:21→12:25)
[2023-08-04] MEDS ORDERED: diphenhydrAMINE Capsule 25 MG CAP PO SCH ×2 (06:00→12:00)
[2023-08-04] MEDS ORDERED: FAMOTIDINE 20 MG TAB PO SCH ×2 (06:00→12:00)
[2023-08-04] MEDS ORDERED: LEVOTHYROXINE SODIUM 100 MCG TABLET PO SCH (06:30)
[2023-08-04] MEDS ORDERED: cephALEXin 500 MG CAP PO SCH (09:00)
[2023-08-04 10:25] LABS: Partial Thromboplastin Ratio 2.4
[2023-08-04 10:29] LABS: Partial Thromboplastin Time 67.8 Seconds (21.0-31.0)
[2023-08-04] MEDS: LOSARTAN POTASSIUM 50 MG TAB PO SCH (11:04)
[2023-08-04] MEDS: ASPIRIN 81 MG ECTAB PO SCH (11:05)
[2023-08-04] MEDS: SIMVASTATIN 20 MG TAB PO SCH (11:05)
[2023-08-04] MEDS: OXYBUTYNIN CHLORIDE XL 5 MG TABCR PO SCH (11:05)
[2023-08-04] MEDS: PANTOprazole 40 MG TAB PO SCH (11:06)
[2023-08-04] MEDS ORDERED: IOVERSOL 350 MG 125mL Prefilled Syringe IV ONE (13:24)
--- NOTE | 2023-08-04 13:47 | CT Scan Report ---
CT ANGIOGRAPHY OF THE CHEST, PULMONARY EMBOLUS PROTOCOL CLINICAL HISTORY: chest pressure, LLE DVT; eval for PE COMPARISON STUDY: Chest radiograph August 02, 2023. TECHNIQUE: Patient was premedicated for IV dye allergy as per protocol. Following IV administration o f 118 mL of Optiray, helical axial images of the chest were obtained utilizing the pulmonary embolus protocol. Maximal intensity projections and sagittal and coronal reformats were viewed on an [employer] 3D workstation. IV contrast was administered without complication. Automated exposure control was utilized for the study. A dose lowering technique was utilized adhering to the principles of ALA RA. CT DOSE: 1160.70 mGy.cm FINDINGS: No pulmonary emboli are identified. There is no thoracic aortic dissection. Mild cardiomeg jordy and moderate coronary artery calcification is present. There is no thoracic lymphadenopathy. No p neumothorax or pleural effusion is present. Linear and groundglass densities reflect atelectasis. Saqib tral airways are patent. There are old right-sided rib fractures. T9 kyphoplasty is noted. Visualized portions of the upper abdomen are unremarkable. IMPRESSION: 1. No pulmonary emboli identified. 2. No acute intrathoracic findings. 3. Mild cardiomegaly and moderate coronary artery calcification. ACT 112: Negative or not required by law. Electronically signed by: Gilbert Horner M.D. 08/04/2023 1:46 PM
[2023-08-04] MEDS: HEPARIN SODIUM/DEXTROSE 25,000 UNITS/500 ML BAG IV SCH (14:50)
[2023-08-04 15:27] LABS: Partial Thromboplastin Ratio 2.1
[2023-08-04 15:54] LABS: Partial Thromboplastin Time 60.6 Seconds (21.0-31.0)
[2023-08-04] MEDS ORDERED: APIXABAN 5 MG TABLET PO SCH ×2 (16:45→21:00)
[2023-08-04] MEDS ORDERED: APIXABAN 5 MG TABLET PO ONE (18:00)
--- NOTE | 2023-08-04 18:35 | Discharge Summary ---
Date of Service August 04, 2023 Admission HPI Per Admitting Provider Pt is 68 yo F with PMH BONNY on BIPAP, hypothyroidism, overactive bladder, sleep- cycle disorder, HTN, GERD, HLD, bradycardia w/ syncope s/p pacemaker insertion 03/2023 presenting with chest pressure. Pt states she had pacemaker insertion on 04/20/23 due to history of persistent bradycardia. She felt well afterward until 6 weeks post-procedure when she began to have intermittent and self-limiting midsternal 5/10 chest pressure (denies pain) without radiation or associated symptoms. She did have pacemaker revision in 05/2023 due do dislodged lead. She notes since 2-3 weeks prior, the chest pressure has evolved to be mostly constant and higher in severity to 7/10. She does note over the past year some increased chest pressure and dyspnea on exertion of which her current symptoms are reminiscent. Denies any FMH of ACS but does report "heart disease" in several family members. She last had stress testing 4 years prior but cannot recall results and has never had catheterization. Pt arrived to ER hemodynamically stable, BP 150s-170s/80s-90s, received aspirin 324 mg and nitroglycerin SL x2. Initial evaluation significant for EKG w/ atrial paced rhythm and prolonged AV conduction, RBBB, no overt ST segment elevations/depressions. CBC, CMP, CXR, troponin x2 negative. UA suggesting infection though epithelial cells noted. At present, pt reports no change in chest pressure. No new symptoms. Discharge Exam gen - NAD, pleasant mouth - MMM neck - no JVD heart - RRR, s1 s2, no murmur; no rub chest - no reproducible chest wall pain to palpation; scar over pacer site left upper chest well-healed lungs - CTA b/l abd - soft NT ND BS+ ext - no edema, pulses 2+ b/l Discharge Data Allergies Allergy/AdvReac Type Severity Reaction Status Date / Time Iodinated Contrast Media Allergy Unknown Verified 08/03/23 03:17 Consultations 08/02/23 23:44 ED Decision to Admit Stat 08/03/23 03:00 Consult Cardiology Routine Ordered Studies 08/03/23 17:12 US venous doppler LE BI Urgent 08/04/23 13:00 CT angio chest PE protocol Urgent Hospital Course (1) Atypical chest pain: Chest "pressure" for 2 months. Symptoms are often at rest. Not worsened by supine positioning; sed rate/crp wnl; thus pericarditis unlikely. Troponins negative. Echo wnl. Stress echo was negative for WMAs but she did not reach target heart rate (only got to MPHR of 82%). [id number] ischemia felt unlikely. No symptoms of GERD. She does report mild NIEVES and recent sedentary lifestyle due to restrictions from her pacemaker procedures; thus, PE possible. After my visit today I obtained dopplers of b/l LEs - there is a popliteal vein DVT - ?chronic. Unfortunately she has an IV contrast allergy. To definitively rule out PE will perform pre-CT contrast protocol with prednisone 50mg x 3 doses followed by CTA chest tomorrow 1 hour after final prednisone dose. In meantime place on heparin infusion, standard dosing. Spoke with cardiology - pressure felt NOT due to the lead displacement. 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 Lead revision 05/2023. Lead again displaced. Dr Chester/Connor have seen -- plan is lead revision in near-future as outpatient. (3) Pacemaker: see above (4) Hypertension: Controlled Continue losartan (5) Hyperlipidemia: Continue simvastatin (6) GERD (gastroesophageal reflux disease): Cont PPI (7) Hypothyroidism: TSH is 15 She reports compliance with her levothyroxine She takes 1/2 her usual daily dose on Sundays Recommend all days of the week 100mcg Repeat TSH 6 weeks Suspect she may need even more dose adjustment (8) Sleep-wake disorder: Continue armodafinil (9) Overactive bladder: Continue solinefacin (10) Obstructive sleep apnea: BIPAP HS (11) Left leg DVT: popliteal vein possibly chronic [id number] this deserves Rx start heparin drip per protocol - standard dosing obtain CTA chest - r/o PE definitively will need prednisone protocol due to contrast allergy made patient aware of the doppler findings and plan for CTA chest tomorrow (12) UTI (urinary tract infection): has had increasing urgency in the last week growing e.coli on urine cx start keflex 500mg BID follow culture Plan hopefully home tomorrow even if CTA chest is + for PE Discharge Plan Discharge Items Patient Disposition: Home - Self-Care Reason For Visit: CHEST PRESSURE Discharge Diagnosis: 1. Chest pressure - exact cause uncertain; musculoskeletal?? CT chest without any blood clots. Stress test negative/normal. 2. Pacemaker placement 2022 with dislodgement of lead - follow-up needed. 3. Urinary tract infection. 4. Left leg DVT - likely chronic/old, but when it developed is uncertain. 5. Hypothyroidism - uncontrolled - TSH level 15; dose adjustment of medication needed. Condition on Discharge: Good Activity: Resume your previous activity Non-emergency contact: Primary Care Provider and Microfilming Document Preparer Call non-emergency contact if: you have any medication questions and your symptoms worsen Follow-up/Referrals: Sergey Ryan MD [Physician] - 08/20/23 3:15 pm (to discuss pacemaker lead revision ) Dora Parrish M.D. [Primary Care Provider] - (5-7 days ) Diet: Heart Healthy Addtl Attending Provider Instructions: Mrs Parker, Rex were hospitalized due to persistent chest pressure. We did not find any evidence of heart attack. Your heart monitoring on telemetry was normal. Your echocardiogram heart ultrasound was normal. Your stress test was NEGATIVE - thus, it is unlikely that blocked coronary arteries are causing your chest symptoms. Dr Sergey Ryan from [facility] saw you in consult. He will perform the lead revision in the near-future. He turned off one of the leads while you were here. In addition to the above we treated you for urinary tract infection. We also found that your thyroid levels were off (TSH came back at 15; should be about 2 to 4). The elevated TSH suggests that you need a higher amount of thyroid medication. Your chest pressure did improve with prednisone. This would suggest that the chest pressure is musculoskeletal in etiology. The other possibility would be for a condition called pericarditis which is when the lining of the heart is inflamed. I spoke with cardiology and our suspicion for pericarditis is low, however. Finally, a DVT blood clot was found in your left leg. Fortunately we did NOT find blood clots in the lungs. The DVT looks old/chronic but we cannot date how long the clot has been there. Therefore, we are recommending blood thinners at this time. Recommendations - 1. Blood thinner - ELIQUIS - * your pharmacy will have the Eliquis in stock tomorrow afternoon * we have provided two 5mg tablets for home use * tomorrow AM, 08/05/23, take the two 5mg tablets (10mg in total) * then, tomorrow evening, start your prescription from the pharmacy * once you have the prescription in hand take as follows - * 10mg twice daily x 6 days, then * 5mg twice daily thereafter * take the Eliquis for at least 3 months The first month of Eliquis will be free. 2. For urinary tract infection - * cephalexin 500mg twice daily x 6 days, first dose tonight if possible 3. For your thyroid - * take 100mcg of your levothyroxine EVERY DAY * have your TSH blood test repeated in 6 weeks by your family doctor 4. See Dr Ryan later this month to discuss your pacemaker lead revision and to have the chest pressure symptom rechecked. 5. See your family doctor within 1 week. 6. Please have your family doctor repeat your doppler study of the left leg in 3 months to see if the clot has fully resolved. The clot is in the left popliteal vein. It was our pleasure to care for you! -Dr Espinal Addtl Salesperson [employer] Provider Instructions: Blood Thinner ("anticoagulant") Medication Instructions: Your DVT condition is typically treated with an anticoagulant. Anticoagulants will thin your blood to help prevent new clots. Your blood thinner is ELIQUIS. I would recommend at least 3 months of Eliquis for the DVT found in your left leg. * You should take your medication exactly as directed. * Never skip a dose. * Never take a double dose. If you miss a dose, take it as soon as you remember. Call your Primary Care doctor if you experience any of the following: * Swelling or Pain in your leg * Sudden, continuous pain deep in a muscle * Pain that worsens when you are active or when you stand still for a long time * Chest Pain * Sudden Shortness of Breath * Rapid or pounding heart beat * Fainting * Dizziness * Cough with blood or bloody sputum * Sweating more than normal * Bruises * Heavy or uncontrolled bleeding * Blood in your urine, stool or vomit * Black or tarry stools * Heavy nose bleeding Caring for Your Self at Home: * Avoid sitting, standing or lying down for long periods without moving your legs and feet * When traveling by car, stop to get out and move around at least once every 3 hours * On long airplane, train or bus rides, get up and move around when possible * If you can't get up, wiggle your toes and tighten your calves to keep your blood moving Pending Studies at Discharge: No Stand-Alone Forms: My [facility], Smoking Cessation Medications and DC Order Prescriptions: New cephalexin 500 mg Capsule 500 mg PO BID 6 Days Qty: 12 0RF Rx Instructions: take first dose PM of 08/04/23 Eliquis 5 mg Tablet 5 mg PO DIRECTED Qty: 60 2RF Rx Instructions: take 2 tablets twice daily x 6 days, then reduce to 1 tablet twice daily thereafter. Continued Caltrate 600 plus D 600 mg-20 mcg (800 unit) tablet,chewable 1 tab PO DAILY fluticasone propionate 50 mcg/actuation spray,suspension 1 spray intranasal DAILY Rx Instructions: administer into each nostril Premarin 0.625 mg/gram cream 0.625 mg vaginal .COMPLEX Rx Instructions: 0.625 mg vaginally twice a week omeprazole 20 mg capsule,delayed release(DR/EC) 20 mg PO DAILY simvastatin 20 mg tablet 20 mg PO DAILY mecobalamin (vitamin B12) 500 mcg tablet,chewable 500 mcg PO DAILY triamcinolone acetonide 0.1 % cream 1 applic topical .COMPLEX PRN (Reason: as directed) Rx Instructions: 1 applic topically twice a week; aspirin 81 mg tablet,delayed release (DR/EC) 81 mg PO DAILY losartan 100 mg tablet 100 mg PO DAILY solifenacin 10 mg tablet 10 mg PO DAILY armodafinil 250 mg tablet 250 mg PO DAILY cholecalciferol (vitamin D3) [Vitamin D3] 125 mcg (5,000 unit) Tablet 125 mcg PO DAILY Changed levothyroxine 100 mcg tablet 100 mcg PO QAM Qty: 30 0RF Rx Instructions: take a full tablet EVERY day. Discharge Orders: Discharge Order (Routine); Ordered 08/04/23 Ordered By: Eugenio Quintanilla/Other Patient Handouts: Understanding Deep Vein Thrombosis Admission Data Admit Date/Time: 08/03/23 00:41 Attending Provider: Eugenio Espinal Admit Provider: Naga Alatorre Primary Care Provider: Dora Parrish Other Providers: Dougie Soto ; Manuel sEpinosa ; Sivakumar Edwards ; Jaya Chester ; Walt Flores ; Tuan Roberts ; Sheldon Hamilton Jr ; Evens Avila ; Ivone Lott ; Neeta Mott ; Michael Camacho ; Sergey Ryan ; Jordy Rob ; Shirin Foster ; Yaz Mcneill ; Zaid Will ; Lawrence Aguilar ; Walt Arellano V. 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
[2023-08-08] MEDS ORDERED: LEVOTHYROXINE SODIUM 50 MCG TABLET PO SCH (06:30)
== END 2023-08-04 19:03 | disposition home or self-care (01) | DRG 313 ==
LOC: ED 16:01 → EDINP 08-03 00:41 → SUATTDRO 08-03 00:41 → EDINP 08-03 03:00 → 2N 08-03 20:51